=== PATIENT | female | born 1960 | race Caucasian/White ===

== ENCOUNTER 2022-07-13 21:51 | Inpatient (IN) | payer OTHER ==
[~2022-07-13] VITALS: Ht 162.6 cm; Wt 102.4 kg
[2022-07-14] VITALS (15 sets, daily range): BP systolic 96–184; BP diastolic 41–92
[2022-07-14] MEDS ORDERED: SODIUM CHLORIDE 0.9% 1,000 ML IV SCH (04:45)
[2022-07-14] MEDS ORDERED: HYDROcodone-ACET 5/325MG TAB PO PRN (04:45)
[2022-07-14] MEDS ORDERED: ACETAMINOPHEN 325 MG TAB PO PRN (04:45)
[2022-07-14] MEDS ORDERED: NITROGLYCERIN 0.4 MG SL TAB SL PRN (04:45)
[2022-07-14] MEDS ORDERED: DOCUSATE SOD 100 MG CAP PO PRN (04:45)
[2022-07-14] MEDS ORDERED: DEXTROSE (50%) 50ML SYRG IV PRN (04:45)
[2022-07-14] MEDS ORDERED: ONDANSETRON HCL 4 MG/2 ML VIAL IV PRN (04:45)
[2022-07-14] MEDS ORDERED: MORPHINE SULFATE INJ 2 MG/ml SYRG IV PRN (04:45)
[2022-07-14] MEDS ORDERED: hydrALAZINE HCL 20 MG/ML VL IV PRN (05:15)
[2022-07-14] MEDS: InsuLIN REG 1unit/0.01ml Soln (100units/ml) SC SCH ×3 (06:12→17:50)
[2022-07-14] MEDS: ACCU-CHEK COMFORT CURVE STRIP VI SCH ×3 (06:14→17:50)
[2022-07-14 07:34] LABS: Basophils # (auto) 0.1 10 ^3/uL (0-0.2); Basophils % (auto) 0.8 % (0.0-2.0); Eosinophils # (auto) 0.4 10 ^3/uL (0-0.8); Eosinophils % (auto) 5.4 % (0.0-7.0); Hematocrit 35.9 % (36.0-46.0); Hemoglobin 11.9 g/dL (12.2-16.2); Lymphocytes # (auto) 3.1 10 ^3/uL (0.4-5.4); Lymphocytes % (auto) 42.6 % (10.0-50.0); Mean Corpuscular Hemoglobin 29.4 pg (28.0-32.0); Monocytes # (auto) 0.5 10 ^3/uL (0-1.3); Monocytes % (auto) 7.4 % (0.0-12.0); Neutrophils # (auto) 3.1 10 ^3/uL (1.6-8.6); Neutrophils % (auto) 43.8 % (37.0-80.0); Red Blood Cells 4.03 10^6/uL (4.0-5.20); Red Cell Distribution Width 13.4 % (11.8-14.3); White Blood Cell 7.2 10^3/uL (4.4-10.8)
[2022-07-14] MEDS ORDERED: MONT-8 PO (07:41)
[2022-07-14] MEDS ORDERED: ISOS1TAB37 PO (07:41)
[2022-07-14] MEDS ORDERED: METO-289 PO (07:41)
[2022-07-14] MEDS ORDERED: ASPI-325 PO (07:41)
[2022-07-14] MEDS ORDERED: LISI40TA11 PO (07:41)
[2022-07-14 07:50] LABS: Potassium 4.7 mmol/L (3.5-5.1)
[2022-07-14 07:55] LABS: BUN/Creatinine Ratio 32.7; Bilirubin, Total 0.4 mg/dL (0.2-1.0); Total Protein 6.4 g/dL (6.4-8.2)
[2022-07-14] MEDS: ASPirin 81 mg TAB PO SCH (09:22)
[2022-07-14] MEDS: amLODIPine BESYLATE 5 MG TAB PO SCH (09:23)
[2022-07-14] MEDS: FAMOTIDINE (10MG/ML) 2ML VL IV SCH (09:23)
[2022-07-14] MEDS ORDERED: ENOXAPARIN SOD 100 MG/1 ML SYRINGE SC ONE (11:15)
[2022-07-14] MEDS ORDERED: IODIXANOL 320MG/ML 100ML BTL IV ONE (16:34)
[2022-07-14] MEDS ORDERED: LIDOCAINE 2%HCL (LOCAL ANESTH.) INJ 20ML MDV ONE (16:35)
[2022-07-14] MEDS ORDERED: ANGIOMAX 250 MG VIAL IV ONE (16:38)
[2022-07-14] MEDS ORDERED: MIDAZOLAM HCL 2MG/2ML 2ml VIAL (1mg/ml) ONE (16:38)
[2022-07-14] MEDS ORDERED: SODIUM CHL 0.9% 50 ML ONE (16:38)
[2022-07-14] MEDS ORDERED: HEPARIN SODIUM (PORCINE) 5000 UNITS/ML 1ML VIAL ONE ×2 (16:38→17:47)
[2022-07-14] MEDS ORDERED: fentaNYL CITRATE 100 MCG/2 ML VL ONE (16:38)
[2022-07-14] MEDS ORDERED: VERAPAMIL 2.5MG/ML INJ 2ML VIAL IV ONE (16:38)
[2022-07-14] MEDS ORDERED: IOHEXOL 350 MG/ML 100ML IJ ONE (17:33)
[2022-07-14] MEDS ORDERED: TICAGRELOR 90 MG TAB ONE (17:44)
[2022-07-14] MEDS ORDERED: ASPirin 81 mg TAB ONE (17:44)
[2022-07-14 19:15] LABS: Cholesterol 204 mg/dL (< 200); HDL Cholesterol 41 mg/dL (40-59); LDL Cholesterol 124 mg/dL (< 100); Triglycerides 295 mg/dL (< 150)
[2022-07-14 19:16] LABS: INR 2.22 (0.9-1.15)
[2022-07-14] MEDS: ATORVASTATIN 20 MG TAB PO SCH (21:00)
[2022-07-14] MEDS ORDERED: ENOXAPARIN SOD 100 MG/1 ML SYRINGE SC SCH (22:00)
[2022-07-15] VITALS (9 sets, daily range): BP systolic 118–149; BP diastolic 36–81
[2022-07-15] MEDS: InsuLIN REG 1unit/0.01ml Soln (100units/ml) SC SCH ×5 (00:12→23:48)
[2022-07-15] MEDS: ACCU-CHEK COMFORT CURVE STRIP VI SCH ×5 (00:13→23:47)
[2022-07-15 05:22] LABS: Basophils # (auto) 0.1 10 ^3/uL (0-0.2); Basophils % (auto) 0.7 % (0.0-2.0); Eosinophils # (auto) 0.5 10 ^3/uL (0-0.8); Eosinophils % (auto) 6.7 % (0.0-7.0); Hematocrit 35.4 % (36.0-46.0); Hemoglobin 11.9 g/dL (12.2-16.2); Lymphocytes # (auto) 2.3 10 ^3/uL (0.4-5.4); Lymphocytes % (auto) 32.6 % (10.0-50.0); Mean Corpuscular Hemoglobin 29.1 pg (28.0-32.0); Mean Corpuscular Hgb Conc. 33.5 g/dL (32.0-36.0); Mean Corpuscular Volume 86.8 fL (80.0-100.0); Monocytes # (auto) 0.5 10 ^3/uL (0-1.3); Monocytes % (auto) 7.3 % (0.0-12.0); Neutrophils # (auto) 3.8 10 ^3/uL (1.6-8.6); Neutrophils % (auto) 52.7 % (37.0-80.0); Red Blood Cells 4.08 10^6/uL (4.0-5.20); Red Cell Distribution Width 13.1 % (11.8-14.3); White Blood Cell 7.2 10^3/uL (4.4-10.8)
[2022-07-15 05:43] LABS: Potassium 4.3 mmol/L (3.5-5.1)
[2022-07-15 05:47] LABS: Albumin 2.9 g/dL (3.4-5.0); BUN/Creatinine Ratio 26.9
[2022-07-15 05:50] LABS: Bilirubin, Total 0.6 mg/dL (0.2-1.0); Total Protein 6.5 g/dL (6.4-8.2)
[2022-07-15] MEDS: TICAGRELOR 90 MG TAB PO SCH ×2 (06:01→18:10)
[2022-07-15] MEDS: amLODIPine BESYLATE 5 MG TAB PO SCH (10:47)
[2022-07-15] MEDS: FAMOTIDINE (10MG/ML) 2ML VL IV SCH (10:48)
[2022-07-15] MEDS: ASPirin 81 mg TAB PO SCH (10:48)
[2022-07-15] MEDS: ATORVASTATIN 20 MG TAB PO SCH (21:30)
[2022-07-16 05:00] VITALS: BP 119/62
[2022-07-16] MEDS: TICAGRELOR 90 MG TAB PO SCH ×2 (05:48→18:24)
[2022-07-16 06:04] LABS: Basophils # (auto) 0.1 10 ^3/uL (0-0.2); Basophils % (auto) 0.9 % (0.0-2.0); Eosinophils # (auto) 0.5 10 ^3/uL (0-0.8); Hematocrit 35.3 % (36.0-46.0); Hemoglobin 11.9 g/dL (12.2-16.2); Lymphocytes # (auto) 2.5 10 ^3/uL (0.4-5.4); Lymphocytes % (auto) 33.6 % (10.0-50.0); Mean Corpuscular Hemoglobin 29.1 pg (28.0-32.0); Mean Corpuscular Hgb Conc. 33.6 g/dL (32.0-36.0); Mean Corpuscular Volume 86.5 fL (80.0-100.0); Monocytes # (auto) 0.6 10 ^3/uL (0-1.3); Monocytes % (auto) 8.6 % (0.0-12.0); Neutrophils # (auto) 3.7 10 ^3/uL (1.6-8.6); Neutrophils % (auto) 49.9 % (37.0-80.0); Red Blood Cells 4.08 10^6/uL (4.0-5.20); White Blood Cell 7.5 10^3/uL (4.4-10.8)
[2022-07-16] MEDS: ACCU-CHEK COMFORT CURVE STRIP VI SCH ×3 (06:20→18:25)
[2022-07-16] MEDS: InsuLIN REG 1unit/0.01ml Soln (100units/ml) SC SCH ×3 (06:21→18:00)
[2022-07-16 06:22] LABS: Potassium 4.4 mmol/L (3.5-5.1)
[2022-07-16 06:30] LABS: BUN/Creatinine Ratio 22.6; Bilirubin, Total 0.5 mg/dL (0.2-1.0); Calcium 8.8 mg/dL (8.5-10.1); Total Protein 6.6 g/dL (6.4-8.2)
[2022-07-16 09:08] VITALS: BP 126/66
[2022-07-16 09:29] LABS: INR 0.96 (0.9-1.15)
[2022-07-16] MEDS: FAMOTIDINE (10MG/ML) 2ML VL IV SCH (09:55)
[2022-07-16] MEDS: amLODIPine BESYLATE 5 MG TAB PO SCH (09:55)
[2022-07-16] MEDS: ASPirin 81 mg TAB PO SCH (09:55)
[2022-07-16 13:23] VITALS: BP 117/63
[2022-07-16] MEDS ORDERED: TICA90TA PO (15:10)
[2022-07-16 17:09] VITALS: BP 151/68
== END 2022-07-16 19:08 | disposition home or self-care (01) | DRG 246 ==
LOC: TELE-EAST 07-14 01:57
PROVIDERS: ADMIT Internal Medicine; ATTEND Internal Medicine
PROC: 027034Z Dilation of Coronary Artery, One Artery with Drug-eluting Intraluminal Device, Percutaneous Approach (ICD-10-PCS; principal; 2022-07-14)
PROC: 4A023N7 Measurement of Cardiac Sampling and Pressure, Left Heart, Percutaneous Approach (ICD-10-PCS; 2022-07-14)
PROC: B211YZZ Fluoroscopy of Multiple Coronary Arteries using Other Contrast (ICD-10-PCS; 2022-07-14)
PROC: B215YZZ Fluoroscopy of Left Heart using Other Contrast (ICD-10-PCS; 2022-07-14)
DX: I21.4 Non-ST elevation (NSTEMI) myocardial infarction (principal); I50.41 Acute combined systolic (congestive) and diastolic (congestive) heart failure; N17.0 Acute kidney failure with tubular necrosis; E87.1 Hypo-osmolality and hyponatremia; I13.0 Hypertensive heart and chronic kidney disease with heart failure and stage 1 through stage 4 chronic kidney disease, or unspecified chronic kidney disease; E66.01 Morbid (severe) obesity due to excess calories; E78.5 Hyperlipidemia, unspecified; E11.65 Type 2 diabetes mellitus with hyperglycemia; N18.30 Chronic kidney disease, stage 3 unspecified; Z20.822 Contact with and (suspected) exposure to COVID-19; E11.22 Type 2 diabetes mellitus with diabetic chronic kidney disease; D64.9 Anemia, unspecified; I25.10 Atherosclerotic heart disease of native coronary artery without angina pectoris; Z71.3 Dietary counseling and surveillance; Z79.01 Long term (current) use of anticoagulants; Z80.8 Family history of malignant neoplasm of other organs or systems; Z82.49 Family history of ischemic heart disease and other diseases of the circulatory system; Z83.3 Family history of diabetes mellitus; Z68.38 Body mass index [BMI] 38.0-38.9, adult; Z88.8 Allergy status to other drugs, medicaments and biological substances
CPT/HCPCS: 36415; 71045; 80053; 80061; 82306; 82962; 83036; 83880; 84443; 84484; 85025; 85610; 92928; 93306; 93458; 99152; 99153; C1874; G0378; J1815; J2250; J3490; Q9967